=== PATIENT | female | born 1955 | race Two or more races ===

== ENCOUNTER 2018-10-10 09:18 | Day surgery (SDC) | payer MEDICARE, OTHER ==
[~2018-10-10] VITALS: Ht 160 cm; Wt 77.3 kg
[~2018-10-10 09:18] MED LIST: CEPH500 PO; CYCL10 PO; Cymbalta60 MG PO; DULO60 PO; ESTR2 PO; Estradiol1 MG PO; GABA300 PO; HYDACE5 PO; HYDMOR2 PO; IBUP800; Imitrex50 MG PO; Mobic7.5 MG PO; OMEPRAZOLE MAGN20 MG PO; OXYACE5T PO; OXYC10TA19 PO; PROG100 PO; Percocet 5-3251 EACH PO; Prilosec Otc20 MG PO; Prozac20 MG; SUMA25; SUMA25 PO; TOPI25 PO; TRAZ100 PO
== END 2018-10-10 12:12 | disposition home or self-care (01) ==
LOC: ORSCSDS 09:18
PROVIDERS: Internal Medicine Gastroenterology
PROC: 0DB98ZX Excision of Duodenum, Via Natural or Artificial Opening Endoscopic, Diagnostic (ICD-10-PCS; principal; 2018-10-10 10:15)
PROC: 0DB68ZX Excision of Stomach, Via Natural or Artificial Opening Endoscopic, Diagnostic (ICD-10-PCS; principal; 2018-10-10 10:15)
DX: R13.10 Dysphagia, unspecified (principal); K44.9 Diaphragmatic hernia without obstruction or gangrene; K62.1 Rectal polyp; Z87.11 Personal history of peptic ulcer disease; R11.2 Nausea with vomiting, unspecified; Z86.010 Personal history of colon polyps; K59.00 Constipation, unspecified; F32.9 Major depressive disorder, single episode, unspecified; Z87.891 Personal history of nicotine dependence; E66.9 Obesity, unspecified; Z68.30 Body mass index [BMI] 30.0-30.9, adult; Z79.899 Other long term (current) drug therapy
CPT/HCPCS: 88305; 88342; J7120

== ENCOUNTER → 2020-04-15 | Outpatient (CLI) | payer MEDICARE, OTHER ==
[2020-04-16 14:10] LABS: U Amphetamine Screen Not Detected; U Barbituate Screen Not Detected; U Benzodiazapine Screen Not Detected; U Buprenorphine Screen Not Detected; U Cannabinoids Screen Not Detected; U Cocaine Screen Not Detected; U Methadone Screen Not Detected; U Methamphetamine Screen Not Detected; U Opiates Screen Not Detected; U Oxycodone Screen DETECTED; U Phencyclidine Screen Not Detected; U Propoxyphene Screen Not Detected
== END | disposition home or self-care (01) ==
LOC: LAB 16:08 → LAB SHORT 16:08
PROVIDERS: Pain Medicine Interventional Pain Medicine
DX: G89.4 Chronic pain syndrome (principal); Z79.899 Other long term (current) drug therapy
CPT/HCPCS: G0480

== ENCOUNTER 2022-10-10 09:07 | Day surgery (SDC) | payer MEDICARE, OTHER ==
[~2022-10-10] VITALS: Ht 162.6 cm; Wt 72.7 kg
[~2022-10-10 09:07] MED LIST changes: +LOSA25 PO; +ONDA8 PO
--- NOTE | 2022-10-10 10:01 | NUR ---
REMOVED MORPHINE FROM ALLERGY/ADVERSE REACTION LIST PER PATIENT REQUEST. PATIENT DENIES ALLERGY/ADVERSE REACTION.
--- NOTE | 2022-10-10 10:02 | NUR ---
Patient States Post-Procedure ride home has been arranged with spouse, Esau.
--- NOTE | 2022-10-10 10:57 | NUR ---
10/10/22 1057 Xavi Odell HISTORY, CHART, MEDICATIONS AND ALLERGIES REVIEWED BEFORE START OF PROCEDURE. PATIENT CONFIRMS NPO STATUS AND AGREES WITH SCHEDULED PROCEDURE. 3-LEAD EKG REVIEWED WITH PHYSICIAN PRIOR TO START OF PROCEDURE. MONITOR INTACT WITH CONTINUOUS PULSE OXIMETRY,CAPNOGRAPHY, 3-LEAD EKG, INTERMITTENT BP. SUPPLEMENTAL O2 TO BE TITRATED THROUGHOUT PROCEDURE TO MAINTAIN O2 SATURATION ABOVE 90%. PATIENT DETERMINED TO BE ASA APPROPRIATE FOR PROPOFOL SEDATION PRIOR TO START OF PROCEDURE BY
--- NOTE | 2022-10-10 11:16 | NUR ---
REPORT RECEIVED FROM KAYE PINEDA RN. VSS. PT DENIES PAIN OR DISCOMFORT AT THIS TIME. PT ABLE TO REPOSITION SELF IN BED. PT REQUESTING PO FLUIDS AND TOLERATING THEM WELL.
--- NOTE | 2022-10-10 11:53 | NUR ---
Patient up to Ambulate independently. Gait steady. VSS. Discharge instructions reviewed with patient. Patient verbalizes understanding. Copy given to patient to take home. Patient States Post-Procedure ride home has been arranged. Discharged via wheelchair to private car for ride home. PT BELONGINGS RETURNED TO PT.
== END 2022-10-10 22:45 | disposition home or self-care (01) ==
LOC: ORSCMMR 09:07
PROVIDERS: Internal Medicine Gastroenterology
PROC: 0DBN8ZX Excision of Sigmoid Colon, Via Natural or Artificial Opening Endoscopic, Diagnostic (ICD-10-PCS; principal; 2022-10-10 10:00)
DX: K62.5 Hemorrhage of anus and rectum (principal); R10.9 Unspecified abdominal pain; Z80.0 Family history of malignant neoplasm of digestive organs; K63.5 Polyp of colon; Z86.010 Personal history of colon polyps; K57.30 Diverticulosis of large intestine without perforation or abscess without bleeding; I10 Essential (primary) hypertension; K21.9 Gastro-esophageal reflux disease without esophagitis; F32.A Depression, unspecified; Z87.820 Personal history of traumatic brain injury; Z79.899 Other long term (current) drug therapy
CPT/HCPCS: 88305; J2250; J2704; J7120

== ENCOUNTER 2024-07-14 10:29 | Emergency (ER) | payer OTHER, MEDICARE ==
[~2024-07-14] VITALS: Ht 162.6 cm; Wt 56.7 kg
[~2024-07-14 10:29] MED LIST changes: +LOSARTAN-HCTZ1 EACH PO
[2024-07-14 10:55] VITALS: BP 131/85
[2024-07-14] MEDS ORDERED: HYDR1TAB94 PO (11:43)
== END 2024-07-14 11:53 | disposition home or self-care (01) ==
LOC: ER 10:29
DX: S52.571A Other intraarticular fracture of lower end of right radius, initial encounter for closed fracture (principal); Z88.2 Allergy status to sulfonamides; Z91.09 Other allergy status, other than to drugs and biological substances; Z79.899 Other long term (current) drug therapy; W01.0XXA Fall on same level from slipping, tripping and stumbling without subsequent striking against object, initial encounter
CPT/HCPCS: 29105; 73030; 73110; 99283-25

== ENCOUNTER 2025-04-22 02:06 | Emergency (ER) | payer MEDICARE ==
[~2025-04-22] VITALS: Ht 162.6 cm; Wt 59.0 kg
[~2025-04-22 02:06] MED LIST changes: +HYDR1TAB94 PO
[2025-04-22 02:49] VITALS: BP 107/87
[2025-04-22] MEDS ORDERED: CEPH500 PO (03:32)
== END 2025-04-22 03:46 | disposition home or self-care (01) ==
LOC: ER 02:06
DX: L02.811 Cutaneous abscess of head [any part, except face] (principal); L03.811 Cellulitis of head [any part, except face]; Z91.040 Latex allergy status; Z79.899 Other long term (current) drug therapy; F17.200 Nicotine dependence, unspecified, uncomplicated
CPT/HCPCS: 99282; A9270